=== PATIENT | male | born 1985 | race Caucasian/White ===

== ENCOUNTER 2019-11-04 13:48 | Emergency (ER) | payer OTHER ==
[~2019-11-04] VITALS: Ht 167.6 cm; Wt 72.6 kg
[~2019-11-04 13:48] MED LIST: ACETAMINOPHEN-1 EAC1 PO; BACLOFEN20 MG PO; MEDROLDOSEPACK PO; SKELAXIN 800 M800 M1 PO
[2019-11-04] MEDS ORDERED: [UNRECOGNIZED DRUG - REMARK] (14:02)
[2019-11-04] MEDS ORDERED: IBUPROFEN 600600 M1 PO (15:05)
[2019-11-04] MEDS ORDERED: TYLENOL WITH CO1 TA1 PO (15:05)
[2019-11-04 15:16] VITALS: BP 95/51
== END 2019-11-04 15:17 | disposition home or self-care (01) ==
LOC: M.ERS 13:48
DX: M70.22 Olecranon bursitis, left elbow (principal); K21.9 Gastro-esophageal reflux disease without esophagitis; F17.210 Nicotine dependence, cigarettes, uncomplicated; Y93.89 Activity, other specified

== ENCOUNTER 2020-08-24 09:21 | Emergency (ER) | payer OTHER ==
[~2020-08-24] VITALS: Ht 177.8 cm; Wt 81.7 kg
[~2020-08-24 09:21] MED LIST changes: +IBUPROFEN 600600 M1 PO; +TYLENOL WITH CO1 TA1 PO; +[UNRECOGNIZED DRUG - REMARK]
[2020-08-24 10:43] VITALS: BP 131/81
== END 2020-08-24 10:44 | disposition home or self-care (01) ==
LOC: M.ERS 09:21
DX: U07.1 COVID-19 (principal); K21.9 Gastro-esophageal reflux disease without esophagitis; Z88.6 Allergy status to analgesic agent